=== PATIENT | female | born 1960 | race African-American/Black ===

== ENCOUNTER 2022-02-11 01:20 | Emergency (ER) | payer MEDICARE ==
[2022-02-11] MEDS ORDERED: Acetaminophen 500 MG TAB ONE (03:35)
== END 2022-02-11 04:46 | disposition home or self-care (01) ==
LOC: CSHERS 01:20
DX: M79.672 Pain in left foot (principal); M79.662 Pain in left lower leg; J45.909 Unspecified asthma, uncomplicated; E11.9 Type 2 diabetes mellitus without complications; Z79.4 Long term (current) use of insulin

== ENCOUNTER 2024-07-29 12:16 | Outpatient (CLI) | payer OTHER | END 2024-07-29 12:17 | disposition home or self-care (01) | LOC: CSHMAMMO 12:16 | PROVIDERS: ATTEND Nurse Practitioner Family | DX: Z12.31 Encounter for screening mammogram for malignant neoplasm of breast (principal); Z91.89 Other specified personal risk factors, not elsewhere classified | CPT/HCPCS: 77063; 77067 ==